=== PATIENT | female | born 1995 | race Two or more races ===

== ENCOUNTER 2025-09-25 19:24 | Emergency (ER) | payer MEDICAID, SELFPAY ==
[2025-09-25 19:27] VITALS: BMI 22.1
[2025-09-25 19:39] VITALS: BP 97/63; PULSE 81; RESP 18; TEMP 36.8; O2SAT 97
--- NOTE | 2025-09-25 20:08 | EKG_ITS ---
[facility] Test Date: 2025-09-25 Pat Name: JOSESITO DENTON Department: Room: - Gender: Female [employer]: : 1995 Requested By: John Dawkins Order Number: [id number] Reading MD: John Dawkins Measurements Intervals Trenary Rate: 80 P: 55 WV: 142 QRS: 64 QRSD: 84 T: 53 QT: 330 QTc: 382 Interpretive Statements SINUS RHYTHM POSSIBLE RIGHT VENTRICULAR CONDUCTION DELAY [RSR (QR) IN V1/V2] No previous ECG available for comparison /[id number]/[id number]
--- NOTE | 2025-09-25 20:08 | XR_ITS ---
EXAMINATION: PA chest single view TECHNIQUE: Upright PA chest single view Date and time: September 25, 2025, 2014 hours INDICATIONS: Shoulder Serevent swelling for the past 7 months with diaphoresis and bloody stools vomiting, chest pain and shortness of breath last 2 days FINDINGS: Normal heart size Lungs are clear Osseous structures are intact IMPRESSION: No active disease
--- NOTE | 2025-09-25 20:09 | PD.EDRME ---
Rapid Medical Screening Exam RME Arrival date/time: 09/25/25 19:24 Chief Complaint: GI Bleed Time Seen by Provider: 09/25/25 19:44 Vital signs: Vital Signs Temperature 98.3 F 09/25/25 19:39 Pulse Rate 81 09/25/25 19:39 Respiratory Rate 18 09/25/25 19:39 Blood Pressure 97/63 09/25/25 19:39 Pulse Oximetry (%) 97 09/25/25 19:39 Oxygen Delivery Method Room Air 09/25/25 19:39 RME Narrative: Patient presents to ED for multiple complaints including chest pain, shortness of breath x 2 days. Also reports bilateral shoulder swelling for the past week. Reports both bright red blood and black emesis intermittent for the past 7 months. Exam: No acute distress Clinical Impression: Chest pain, shortness of breath
[2025-09-25 20:38] LABS: Sed Rate (ESR) < 1 mm/hr (0-20)
[2025-09-25 20:40] LABS: Basophils # (Auto) 0.0 Thou/mm3 (0.0-0.2); Basophils % (Auto) 1 % (0-2.5); Eosinophils # (Auto) 0.0 Thou/mm3 (0.0-0.5); Eosinophils % (Auto) 1 % (0-10); Hematocrit 40.9 % (36.0-46.0); Hemoglobin 13.4 g/dL (12.0-16.0); Immature Granulocytes Auto 0.00 Thou/mm3 (0.00-0.00); Lymphocytes # (Auto) 1.1 Thou/mm3 (1.0-4.8); Lymphocytes % (Auto) 34 % (10-50); Mean Corpuscular HGB Conc 32.8 g/dl (31.0-37.0); Mean Corpuscular Hemoglobin 30.2 pg (25.0-35.0); Mean Corpuscular Volume 92 fL (80-100); Monocytes # (Auto) 0.6 Thou/mm3 (0.0-0.8); Monocytes % (Auto) 19 % (0-12); Neutrophils # (Auto) 1.4 Thou/mm3 (1.8-7.7); Neutrophils % (Auto) 45 % (37-80); Nucleated Red Blood Cell # 0.00 Thou/mm3 (0.00-0.00); Nucleated Red Blood Cell % 0 /100 WBC (0); Platelet Count 218 Thou/mm3 (140-440); RDW Standard Deviation 43.5 fL (36.4-46.3); Red Blood Count 4.43 Miln/mm3 (4.00-5.20); White Blood Count 3.1 Thou/mm3 (3.6-11.0)
[2025-09-25 20:57] LABS: Alanine Aminotransferase 39 U/L (10-49); Albumin, Serum 4.9 gm/dL (3.5-5.0); Albumin/Globulin Ratio 2.2 (1.2-2.2); Alkaline Phosphatase 99 U/L (46-116); Anion Gap 9 (7-16); Aspartate Amino Transferase 48 U/L (0-34); B-Type Natriuretic Peptide < 20 pg/mL (0-100); BUN/Creatinine Ratio 11 Ratio (12-20); Bilirubin,Total 0.4 mg/dL (0.3-1.2); Blood Urea Nitrogen 9 mg/dL (9-23); Calcium 9.6 mg/dL (8.3-10.6); Calcium (Corrected) 9.6 mg/dL (8.5-10.1); Carbon Dioxide 27.9 mMol/L (20.0-31.0); Chloride 107 mMol/L (98-107); Creatinine (Component) 0.8 mg/dL (0.6-1.3); Estimated Creatinine Clearance 86.6 mL/min (>60); Globulin 2.2 gm/dL (2.3-3.5); Glucose 83 mg/dL (74-106); Osmolality,Calculated 284 (275-295); Potassium 3.4 mMol/L (3.4-5.1); Sodium 144 mMol/L (136-145); Total Protein 7.1 gm/dL (5.7-8.2); Troponin I < 0.002 ng/mL (0.0-0.045); eGFR > 60 See Note
[2025-09-25 21:14] LABS: Collection Type, Urine Clean Catch
[2025-09-25 21:33] LABS: HCG Qualitative,Urine Negative
[2025-09-25 21:35] LABS: Bilirubin,Urine Negative (Negative); Blood,Urine Negative (Negative); Clarity,Urine Turbid (Clear/Hazy); Color,Urine Yellow (Lt Yel-Yel); Glucose, Urine Negative (Negative); Ketones,Urine Trace (Negative); Leukocyte Esterase,Urine Positive (Negative); Nitrite,Urine Negative (Negative); PH,Urine 6.5 (5.0-7.0); Protein,Urine 1+ (Neg - Trace); RBC,Urine 9 /hpf (0-3); Specific Gravity,Urine 1.035 (1.001-1.035); Squamous Epithelial Cell,Urine 11 /hpf (0-5); Urobilinogen,Urine Negative mg/dL (0.0-1.0); WBC,Urine 7 /hpf (0-5)
[2025-09-25 21:40] LABS: C-Reactive Protein < 0.5 mg/dL (0.0-0.9)
--- NOTE | 2025-09-25 23:01 | PD.EDGIBLD ---
ED GI Bleed RME/HPI General Chief complaint: GI Bleed Stated complaint: GI BLEEDING 7 MONTHS Time Seen by Provider: 09/25/25 19:44 Arrival date/time: 09/25/25 19:24 RME / HPI RME / HPI Narrative: Patient presents to ED for multiple complaints including chest pain, shortness of breath x 2 days. Also reports bilateral shoulder swelling for the past week. Reports both bright red blood and black emesis intermittent for the past 7 months. Patient denies any vomiting blood. Denies any weight loss. Denies any abdominal pain denies any other complaints no medications taken prior to ER visit. Exam: No acute distress Impression: Chest pain, shortness of breath, bright red blood per rectum Related Data Home Medications ?Medication ?Instructions ?Recorded ?Confirmed prenat.vits,josafat,gwc-wond-mukvb tab 10/08/21 Allergies Allergy/AdvReac Type Severity Reaction Status Date / Time shellfish derived Allergy Verified 09/25/25 19:35 Review of Systems Review of Systems Narrative Review of Systems: Review of system reviewed and within normal limits except mentioned in HPI ED Exam Narrative Physical exam: VITAL SIGNS: Reviewed. GENERAL APPEARANCE: Alert and interactive, follows commands, no acute distress, HEAD AND FACE: Non-traumatic. ENT: PERRL, pink conjunctivitis, eyelid no trauma, Mucous membrane moist. NECK: Supple, nontender, no nuchal rigidity. CHEST: No tenderness, no crepitus, no paradoxical movement, no retractions. LUNGS: Clear, well ventilated, symmetric, no rales, no wheezing, no ronchi, no stridor, good breath sounds bilaterally. HEART: Regular rate, regular rhythm, no murmur, no gallops. ABDOMEN: Soft, positive bowel sounds, nondistended, no guarding, nontender, no rebound, no masses, RECTAL: Deferred. GENITAL: Deferred. NEUROLOGICAL: Gross motor function intact sensory function intact, Appropriate for age. MUSCULOSKELETAL: low back nontender, full range of motion. EXTREMITIES: Nontender, full range of motion. SKIN: Color pink, dry, no rash, no lacerations, no abrasions, no contusions. LYMPHATICS: Deferred. Course Quality Measures none Orders Category Date Time Status EKG (ED ONLY) *Do not use* NOW Care 09/25/25 20:09 Completed CXR [XR chest 1V] Stat Exams 09/25/25 20:08 Completed EKG (ED Only) Stat Exams 09/25/25 20:08 Draft BNP [B-Type Natriuretic Peptide] Stat Lab 09/25/25 20:26 Completed CBC Stat Lab 09/25/25 20:26 Completed CMP [Comprehensive Metabolic Panel] Stat Lab 09/25/25 20:26 Completed CRP [C-Reactive Protein] Stat Lab 09/25/25 20:26 Completed ESR [Sed Rate (ESR)] Stat Lab 09/25/25 20:26 Completed HCG Qualitative,Urine Stat Lab 09/25/25 21:09 Completed Troponin I Stat Lab 09/25/25 20:26 Completed UA [Urinalysis] Stat Lab 09/25/25 21:09 Completed Vital Signs Vital signs: Vital Signs Temperature 98.3 F 09/25/25 19:39 Pulse Rate 81 09/25/25 19:39 Respiratory Rate 18 09/25/25 19:39 Blood Pressure 97/63 09/25/25 19:39 Pulse Oximetry (%) 97 09/25/25 19:39 Oxygen Delivery Method Room Air 09/25/25 19:39 GI Bleed MDM Narrative MDM Narrative:: Patient presents to ED for multiple complaints including chest pain, shortness of breath x 2 days. Also reports bilateral shoulder swelling for the past week. Reports both bright red blood and black emesis intermittent for the past 7 months. Patient denies any vomiting blood. Denies any weight loss. Denies any abdominal pain denies any other complaints no medications taken prior to ER visit. Patient's workup today all came back unremarkable. No sign of anemia. There is of the labs unremarkable. I personally reviewed and interpreted the x-ray of this patient. There is no acute abnormalities found, no infiltrates no pneumothorax no hemothorax normal chest x-ray. Review of other structures was without significant abnormal findings also. I additionally reviewed the radiologist report and agree with the interpretation. Patient was advised to follow-up closely with PCP and asked for referral to GI specialist for outpatient endoscopy or colonoscopy. Patient agrees with the plan. Patient data External records reviewed:: None Clinical information provided by:: patient Social determinants that could affect healthcare access:: none Patient has the following chronic illnesses:: None How is presenting disease/condition affected by chronic disease/condition?: no chronic disease Evaluation data The following diagnostics were reviewed and interpreted by me:: lab results and radiology exam(s) Lab and/or radiology exams considered but not ordered:: None Interpretation Summary: See results MDM Medications / Prescriptions Medications or Prescriptions considered but not ordered:: None Medication administrations:: None Consultations Consultation(s) initiated? (list below): No Diagnosis GI bleed differential diagnosis: Upper gastrointestinal hemorrhage, Lower gastrointestinal hemorrhage and hematochezia Most likely diagnosis given after review of the tests above:: Chest pain, shortness of breath Admission Indicated Admission indicated?: not indicated Admission Request Was there a request for admission?: No Disposition Plan Disposition Plan: Discharge Discharge Attestation Discharge Attestation: The patient was given an opportunity to ask questions and understood the discharge instructions. Discharge instructions specifically effects, indications for sooner follow up or return to the emergency department, and the expected course of current diagnosis. Patient condition: Stable Discharge Plan Plan Patient Disposition: HOME (Self Care) Discharge Disposition comment: Stable Prescriptions/Referrals Prescriptions/Med Rec: No Action Vitamin Tablet Referrals: No Primary/Family,Physician [Primary Care Provider] - In 1 week Problem List Clinical Impression: Shortness of breath, Bright red blood per rectum Patient/Caregiver Discharge Instructions Discharge Activity: activity as tolerated Education Materials: ED Lower GI Bleeding (Stable) Additional Instructions: Thank you for the opportunity for serving you today. You are stable for discharged . You are advised to: Follow-up with your PCP in 1 to 2 days and ask for referral to GI specialist for outpatient colonoscopy Return to ED for worsening of symptoms Increase oral fluids Print Language: [place] Stand Alone Forms: Fatimah Award Info., Patient Portal Info Letter
== END 2025-09-25 23:10 | disposition home or self-care (01) ==
PROVIDERS: Physician Assistant; Emergency Provider Emergency Medicine
DX: K92.2 Gastrointestinal hemorrhage, unspecified (principal)
CPT/HCPCS: 36415; 71045; 80053; 81001; 81025; 83880; 84484; 85025; 85652; 86140; 93005; 99283